=== PATIENT | female | born 1950 | race Caucasian/White ===

== ENCOUNTER → 2017-12-01 10:35 | Outpatient (CLI) | payer MEDICARE, SELFPAY ==
[2017-12-01 14:48] LABS: TSH w/ Reflex to FT4 2.75 uIU/mL (0.47-4.68)
[2017-12-01 14:50] LABS: BUN Creatinine Ratio 12.2 (6-22); Blood Urea Nitrogen 11 mg/dL (7-17); Calcium 9.5 mg/dL (8.4-10.2); Carbon Dioxide 30 mmol/L (22-32); Chloride 97 mmol/L (98-107); Cholesterol 310 mg/dL (140-199); Estimated Glomerular Filt Rate > 60.0 mL/min (>60); Glucose 90 mg/dL (80-110); HDL Cholesterol 106 mg/dL (40-60); HEMOLYSIS < 15 (0-50); LDL Cholesterol Calculated 183 mg/dL (<100); Potassium 4.3 mmol/L (3.4-5.1); Sodium 136 mmol/L (137-145); Triglycerides 103 mg/dL (35-150)
== END ==
PROVIDERS: Family Provider Internal Medicine; PCP Internal Medicine; Visit Provider Internal Medicine
DX: E03.9 Hypothyroidism, unspecified (principal); E78.00 Pure hypercholesterolemia, unspecified
CPT/HCPCS: 36415; 80048; 80061; 84443

== ENCOUNTER 2018-03-31 08:16 | Day surgery (SDC) | payer MEDICARE, SELFPAY ==
[2018-03-31 08:30] VITALS: BP 132/76; PULSE 49; RESP 10; TEMP 36.8; O2SAT 100; BMI 18.6
--- NOTE | 2018-03-31 08:46 | P.HP_ITS ---
History of Present Illness Date Patient Seen: 03/31/18 Time Patient Seen: 08:44 Chief complaint: 18476 SCREENING COLONOSCOPY Narrative: Destinee 67-year-old lady here for screening colonoscopy. She had an attempted colonoscopy in June that was done with IV sedation but she had a paradoxical reaction to fentanyl and Versed and became very rigid. Eventually, the procedure was aborted for safety concerns. She returns today to have this procedure done under general anesthesia. She reports that she has tolerated the prep fairly well. It has now been almost 11 years since her last full colonoscopy. She denies any nausea this morning reports that she feels well. Patient History Family & Social History Family History: Reviewed 03/31/18 by Shima Brown MD Meds Home Medications Medication Instructions Recorded Confirmed Type lorazepam [Ativan] 0.5 mg PO HSP PRN #2 tab 03/09/17 Rx multivitamin [Multiple Vitamins] 1 tab PO QDAY #0 03/09/17 History temazepam PO HSP PRN #0 03/09/17 History terbinafine HCl 250 mg PO QDAY #0 03/09/17 History Review of Systems Review of Systems All systems reviewed & are unremarkable except as noted in HPI and below Exam Vital Signs (past 8 hours): Very pleasant healthy-appearing lady in no distress HEENT: Normocephalic and atraumatic, pupils equal round reactive to light accommodation with anicteric sclera Lungs: Clear to auscultation bilaterally Heart: Regular rate and rhythm without murmur rub or gallop Abdomen: Soft, nontender, active bowel sounds Extremities: Warm well perfused without edema. Assessment & Plan Plan: Assessment/Plan Narrative: Very pleasant 67-year-old lady here for screening colonoscopy. As stated above , this was attempted with IV sedation but due to a paradoxical reaction, the procedure was aborted. We discussed the risks and benefits today with the patient and she has expressed a desire to complete the procedure with general anesthesia today.
[2018-03-31] MEDS: SODIUM CHLORIDE 0.9% 1,000 ML 200 ML IV (08:48)
[2018-03-31 09:33] VITALS: BP 97/60; PULSE 49; RESP 18; TEMP 36.6; O2SAT 98
--- NOTE | 2018-03-31 09:37 | PM.OP.1 ---
Operative Date/Time/Diagnoses Date of procedure: 03/31/18 Time of procedure: 09:37 Post-op diagnosis: same Procedure & Clinicians Procedure: Colonoscopy to the cecum Same procedure as scheduled: Yes Indications: Last colonoscopy 11 years ago Surgeon: Shima Brown Anesthesia Type: General (Dr. Sweeney) Operative Notes Findings: 1. Excellent prep 2. No polyps or mass lesions 3. Minimal diverticulosis limited sigmoid region 4. Long, tortuous, and atonic: 5. Grade 1-2 internal hemorrhoids. Closure Type: not applicable Estimated Blood Loss (mL): 0 Procedure in detail: After obtaining informed consent, the patient was brought to the GI suite and placed in the left lateral decubitus position on the examination table. After placement of appropriate monitors, the patient was given incremental doses of Versed and Fentanyl until an appropriate level of sedation was achieved. A time out was held per SCOAP protocol. A digital rectal examination was performed and did not reveal any masses or obstructing lesions. The colonoscope was gently passed into the patient's anus and the entire colon navigated to the level of the cecum with moderate difficulty due to colon atony and tortuosity. External pressure was required to negotiate to the hepatic flexure. Once in the cecum, the scope was withdrawn being sure to go before and beyond all mucosal folds and prominences and get an excellent examination. The findings are noted above. At the level of the rectal vault, the scope was retroflexed and the internal anal canal was examined. The scope was straightened and air aspirated from the colon. The instrument was removed from the patient's body and the procedure was concluded. The patient was allowed to awaken from sedation without difficulty and taken to the post-anesthesia care unit in good condition. Complications: none Condition: stable Disposition: PACU Plan for aftercare: 1. Discharge to home 2. Plan for next colonoscopy in 10 years or as clinically indicated. The patient is next colonoscopy should be scheduled with general anesthesia as well.
[2018-03-31 09:38] VITALS: BP 105/67; PULSE 48; RESP 16; O2SAT 99
[2018-03-31 09:43] VITALS: BP 110/70; PULSE 52; RESP 15; O2SAT 100
[2018-03-31 09:50] VITALS: BP 118/75; PULSE 52; RESP 17; TEMP 36.8; O2SAT 97
[2018-03-31 10:24] VITALS: BP 143/75; PULSE 56; RESP 16; TEMP 36.7; O2SAT 99
--- NOTE | 2018-03-31 11:16 | SUR.PHASEII ---
late entry: foreign came for pt, kendirck went over d/c instructions, pt left when ready and left in stable condition.
== END 2018-03-31 10:40 | disposition home or self-care (01) ==
PROVIDERS: Family Provider Internal Medicine; PCP Internal Medicine; Visit Provider Surgery
PROC: 0DJD8ZZ Inspection of Lower Intestinal Tract, Via Natural or Artificial Opening Endoscopic (ICD-10-PCS; CPT 45378; principal; 2018-03-31 09:15)
DX: Z12.11 Encounter for screening for malignant neoplasm of colon (principal); K57.30 Diverticulosis of large intestine without perforation or abscess without bleeding; K64.1 Second degree hemorrhoids
CPT/HCPCS: G0121; J2704

== ENCOUNTER 2018-06-08 14:30 | Outpatient (RCR) | payer MEDICARE, SELFPAY ==
--- NOTE | 2018-04-14 15:30 | PT.OIE ---
Current Diagnoses Strain of muscle, fascia and tendon of pelvis, initial encounter (04/14/18) Provider Visit Care Team Role Provider Type Cassy Rosas MD Primary Care Provider Physician Specialty: Internal Medicine Address: [address] [place] [address], [id number] Email: Zeeshan Swan PA-C Attending Provider Advanced Trainmaster Specialty: Medical Address: [address] [place] [address], [place], [address] Email: Physical Therapy Initial Evaluation PT-OP-A Visit Information Start: 04/14/18 08:48 Freq: Status: Active Protocol: Document 04/14/18 14:30 AMB (Rec: 04/15/18 08:08 AMB [email or web address]) Out-Patient Physical Therapy Visit Information Visit Information Visit Type Initial Evaluation Visit Start Time 14:30 Visit Stop Time 15:30 Total Visit Minutes 60 Visit Number 1 Evaluation Information Evaluation Date 04/14/18 PT-OP-B Current Condition Start: 04/14/18 08:48 Freq: Status: Active Protocol: Document 04/14/18 14:30 AMB (Rec: 04/15/18 08:08 AMB [email or web address]) Current Condition History of Current Condition Onset Date mid March Current Complaints R groin pain radiates into SI and down quad History of Current Condition The patient reports she was working out at the gym and didn't notice how much weight was on the hip abduction machine (when questioned she isn't quite sure it was this machine and admits it may have been the hip adduction machine). She tried to push against it and since has had pain in her right groin. She denies hearing a pop or any bruising. The pain was not horrible to begin with and slowly increased for a few days afterward. Now it it staying about the same. Worse with walking and rolling over in bed, best with staying still, lying down. Just prior to this injury she had noticed L piriformis pain after hiking downhill, but that has now resolved. Treatment Goals Patient/Caregiver Goals Get back to a full workout at the gym (elliptical, weights, rowing machine) and hiking. 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 She states she does not physically assist him (more than helping him towel off from the shower) . 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 Therapy/Recovery PT-OP-C Subjective Start: 04/14/18 08:48 Freq: Status: Active Protocol: Document 04/14/18 14:30 AMB (Rec: 04/15/18 08:08 AMB [email or web address]) Patient Questionnaires Lower Extremity Functional Scale LEFS Score 28 LEFS Impairment 60 to 79% Impaired (Score 17- 31) OP-PT Pain Assessment Pain Assessment Grid Paper Pain Assessment Grid Completed Yes Location Right Groin Pain Location Details groin, SI, thigh Intensity 5 Scale Used Numeric (1 - 10) PT-OP-G Mobility & Gait Start: 04/14/18 08:48 Freq: Status: Active Protocol: Document 04/14/18 14:30 AMB (Rec: 04/15/18 12:43 AMB [email or web address]) OP Gait Assessment Comments Gait Comments Antalgic gait. Decreased trunk rotation, increased lateral trunk lean. PT-OP-J Posture/Palpation/Skin Start: 04/14/18 08:48 Freq: Status: Active Protocol: Document 04/14/18 14:30 AMB (Rec: 04/15/18 11:09 AMB [email or web address]) Posture Evaluation Comments Posture Comments Pt stands with increased thoracic kyphosis and lumbar lordosis. Stands with genu recurvatum, hanging on Y ligaments. In supine R ASIS and malleoli are low. Palpation Assessment Location One Palpation Location R pelvis Palpation Details Pt denies pain with deep palpation to pubic bone, adductors, inguinal ligament, SI joint, gluteals and psoas. She does note some tenderness to the above structures but it is not increased on the R in comparsion to the L. PT-OP-K Range of Motion Start: 04/14/18 08:48 Freq: Status: Active Protocol: Document 04/14/18 14:30 AMB (Rec: 04/15/18 11:12 AMB [email or web address]) Hip Goniometric Range of Motion Hip ROM Limitations Comments Pt is generally hyper mobile throughout her hips and knees, no discomfort with stretching hamstring, piriformis, adductors, or quads through full range of motion. PT-OP-M Strength Start: 04/14/18 08:48 Freq: Status: Active Protocol: Document 04/14/18 14:30 AMB (Rec: 04/15/18 12:43 AMB [email or web address]) Hip Strength Hip Manual Muscle Testing Right Flexion (L2) 4 Good Extension (S1) 4 Good Abduction 4- Good- Adduction 4- Good- External Rotation 4 Good Internal Rotation 4 Good Left Flexion (L2) 5 Normal Extension (S1) 5 Normal Abduction 5 Normal Adduction 5 Normal External Rotation 4+ Good+ Internal Rotation 4 Good Knee Strength Knee Manual Muscle Testing Right Flexion (S2) 4+ Good+ Extension (L3) 5 Normal Left Flexion (S2) 5 Normal Extension (L3) 5 Normal PT-OP-Q Treatments Start: 04/14/18 08:48 Freq: Status: Active Protocol: Document 04/14/18 14:30 AMB (Rec: 04/15/18 11:16 AMB [email or web address]) Cardio Equipment Recumbent Bicycle Duration (Minutes) 5 Resistance 1 Seat Position 5 Therapeutic Exercises Supine Exercises 1 Supine Exercise Name lower trunk rotation Reps/Minutes 10 Comments hooklying Sitting Exercises 1 Sitting Exercise Name hip abd Resistance #3 tband Reps/Minutes 2x10 PT-OP-R Modalities Start: 04/14/18 08:48 Freq: Status: Active Protocol: Document 04/14/18 14:30 AMB (Rec: 04/15/18 11:16 AMB [email or web address]) Electric Stimulation Electric Stimulation Interferential Current (IFC) Body Location R groin Duration (Minutes) 10 Patient Position Hooklying PT-OP-T Assessment and Plan Start: 04/14/18 08:48 Freq: Status: Active Protocol: Document 04/14/18 14:30 AMB (Rec: 04/15/18 08:12 AMB [email or web address]) Physical Therapy Assessment Rehab Potential Rehabilitation Potential Good Evaluation Complexity Number of Personal Factors/Comorbidities 1-2 Number of Body Systems Impaired 4 or More Clinical Presentation at Evaluation Evolving Impairments Impairments Functional Activities Gait Pain Posture Strength Goals Three Impairment gait Short Term Goal (STG) The patient will ambulate over smooth surfaces for 5 minutes without an increase in leg pain. STG Duration 4 weeks Two Impairment Return to exercise Short Term Goal (STG) The patient will work out at the gym for 40 minutes with 2/ 10 pain or less. STG Duration 4 weeks Assisted Goal (LTG) The patient will go on a 1 mile hike with leg pain of 2/ 10 or less. LTG Duration 8 weeks One Impairment mobility Short Term Goal (STG) The patient will roll over in bed without groin pain. STG Duration 4 weeks Prison Psychiatrist Goal (LTG) The patient will move from sit to stand without groin pain. LTG Duration 8 weeks Assessment Summary Assessment The patient attends physical therapy with R groin strain with postural changes and SI dysfunction. Interestingly, she notes the most pain with resisted hip abduction and she was not especially tender to palpation. She has previously been fairly active, but has significant antalgic gait patterning due to the pain. She will benefit from PT to improve her gait, transfers, strength, and return to previous level of function. Physical Therapy Plan Frequency and Duration Frequency of Treatment 2x/Week Duration of Treatment 8 weeks Plan of Care Start Date 04/14/18 Plan of Care End Date 06/09/17 Therapeutic Interventions Therapeutic Interventions Aquatic Therapy Balance Training Gait Training Home Exercise Program Joint Mobilizations Manual Therapy Neuromuscular Re-education Self-Care/Home Management Soft Tissue Mobilization Therapeutic Activities Therapeutic Exercises Modalities Cold Pack/Ice Massage Electric Stimulation Hot Packs Ultrasound Next Visit Focus/Plan Next Note Type Treatment Note Next Visit Plan Progress core/hip stability. Encourage safe return to gym exercise (stationary bike vs rowing machine). Gait training to avoid compensation/antalgic gait.
--- NOTE | 2018-04-15 14:22 | PT.OPPOC ---
Current Diagnoses Strain of muscle, fascia and tendon of pelvis, initial encounter (04/14/18) Provider Visit Care Team Role Provider Type Cassy Rosas MD Primary Care Provider Physician Specialty: Internal Medicine Address: [address] [place] [address], [id number] Email: Zeeshan Swan PA-C Attending Provider Advanced Engraving Plate Maker Specialty: Medical Address: [address] [place] [address], [place], [address] Email: Plan Of Care PT-OP-T Assessment and Plan Start: 04/14/18 08:48 Freq: Status: Active Protocol: Document 04/14/18 14:30 AMB (Rec: 04/15/18 08:12 AMB [email or web address]) Physical Therapy Assessment Rehab Potential Rehabilitation Potential Good Evaluation Complexity Number of Personal Factors/Comorbidities 1-2 Number of Body Systems Impaired 4 or More Clinical Presentation at Evaluation Evolving Impairments Impairments Functional Activities Gait Pain Posture Strength Goals Three Impairment gait Short Term Goal (STG) The patient will ambulate over smooth surfaces for 5 minutes without an increase in leg pain. STG Duration 4 weeks Two Impairment Return to exercise Short Term Goal (STG) The patient will work out at the gym for 40 minutes with 2/ 10 pain or less. STG Duration 4 weeks Supervisor Finishing Room Goal (LTG) The patient will go on a 1 mile hike with leg pain of 2/ 10 or less. LTG Duration 8 weeks One Impairment mobility Short Term Goal (STG) The patient will roll over in bed without groin pain. STG Duration 4 weeks [facility] Goal (LTG) The patient will move from sit to stand without groin pain. LTG Duration 8 weeks Assessment Summary Assessment The patient attends physical therapy with R groin strain with postural changes and SI dysfunction. Interestingly, she notes the most pain with resisted hip abduction and she was not especially tender to palpation. She has previously been fairly active, but has significant antalgic gait patterning due to the pain. She will benefit from PT to improve her gait, transfers, strength, and return to previous level of function. Physical Therapy Plan Frequency and Duration Frequency of Treatment 2x/Week Duration of Treatment 8 weeks Plan of Care Start Date 04/14/18 Plan of Care End Date 06/09/17 Therapeutic Interventions Therapeutic Interventions Aquatic Therapy Balance Training Gait Training Home Exercise Program Joint Mobilizations Manual Therapy Neuromuscular Re-education Self-Care/Home Management Soft Tissue Mobilization Therapeutic Activities Therapeutic Exercises Modalities Cold Pack/Ice Massage Electric Stimulation Hot Packs Ultrasound Next Visit Focus/Plan Next Note Type Treatment Note Next Visit Plan Progress core/hip stability. Encourage safe return to gym exercise (stationary bike vs rowing machine). Gait training to avoid compensation/antalgic gait. Plan of Care Dates Plan of Care Start Date 04/14/18 Plan of Care End Date 06/09/17 Please Sign and Return: I have reviewed this Plan of Care and certify that the skilled therapy services above are required to meet the patient?s needs. Physician Signature Date Printed Name and Credentials Clinical Instructor Signature Printed Name and Credentials
--- NOTE | 2018-04-16 16:09 | PT.OTN ---
Current Diagnoses Strain of muscle, fascia and tendon of pelvis, initial encounter (04/16/18) Physical Therapy Treatment Note PT-OP-A Visit Information Start: 04/14/18 08:48 Freq: Status: Active Protocol: Document 04/16/18 14:30 DCW (Rec: 04/16/18 16:09 DCW [id number]) Out-Patient Physical Therapy Visit Information Visit Information Visit Type Treatment Note Visit Start Time 14:30 Visit Stop Time 15:25 Total Visit Minutes 55 Visit Number 2 Number of HAIR SPRING CUTTER Visits 0 Evaluation Information Evaluation Date 04/14/18 PT-OP-B Current Condition Start: 04/14/18 08:48 Freq: Status: Active Protocol: Document 04/14/18 14:30 AMB (Rec: 04/15/18 08:08 AMB [email or web address]) Current Condition History of Current Condition Onset Date mid March Current Complaints R groin pain radiates into SI and down quad History of Current Condition The patient reports she was working out at the gym and didn't notice how much weight was on the hip abduction machine (when questioned she isn't quite sure it was this machine and admits it may have been the hip adduction machine). She tried to push against it and since has had pain in her right groin. She denies hearing a pop or any bruising. The pain was not horrible to begin with and slowly increased for a few days afterward. Now it it staying about the same. Worse with walking and rolling over in bed, best with staying still, lying down. Just prior to this injury she had noticed L piriformis pain after hiking downhill, but that has now resolved. Treatment Goals Patient/Caregiver Goals Get back to a full workout at the gym (elliptical, weights, rowing machine) and hiking. 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 She states she does not physically assist him (more than helping him towel off from the shower) . 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 PT-OP-G Mobility & Gait Start: 04/14/18 08:48 Freq: Status: Active Protocol: Document 04/14/18 14:30 AMB (Rec: 04/15/18 12:43 AMB [email or web address]) OP Gait Assessment Comments Gait Comments Antalgic gait. Decreased trunk rotation, increased lateral trunk lean. PT-OP-J Posture/Palpation/Skin Start: 04/14/18 08:48 Freq: Status: Active Protocol: Document 04/14/18 14:30 AMB (Rec: 04/15/18 11:09 AMB [email or web address]) Posture Evaluation Comments Posture Comments Pt stands with increased thoracic kyphosis and lumbar lordosis. Stands with genu recurvatum, hanging on Y ligaments. In supine R ASIS and malleoli are low. Palpation Assessment Location One Palpation Location R pelvis Palpation Details Pt denies pain with deep palpation to pubic bone, adductors, inguinal ligament, SI joint, gluteals and psoas. She does note some tenderness to the above structures but it is not increased on the R in comparsion to the L. PT-OP-K Range of Motion Start: 04/14/18 08:48 Freq: Status: Active Protocol: Document 04/14/18 14:30 AMB (Rec: 04/15/18 11:12 AMB [email or web address]) Hip Goniometric Range of Motion Hip ROM Limitations Comments Pt is generally hyper mobile throughout her hips and knees, no discomfort with stretching hamstring, piriformis, adductors, or quads through full range of motion. PT-OP-M Strength Start: 04/14/18 08:48 Freq: Status: Active Protocol: Document 04/14/18 14:30 AMB (Rec: 04/15/18 12:43 AMB [email or web address]) Hip Strength Hip Manual Muscle Testing Right Flexion (L2) 4 Good Extension (S1) 4 Good Abduction 4- Good- Adduction 4- Good- External Rotation 4 Good Internal Rotation 4 Good Left Flexion (L2) 5 Normal Extension (S1) 5 Normal Abduction 5 Normal Adduction 5 Normal External Rotation 4+ Good+ Internal Rotation 4 Good Knee Strength Knee Manual Muscle Testing Right Flexion (S2) 4+ Good+ Extension (L3) 5 Normal Left Flexion (S2) 5 Normal Extension (L3) 5 Normal PT-OP-Q Treatments Start: 04/14/18 08:48 Freq: Status: Active Protocol: Document 04/16/18 14:30 DCW (Rec: 04/16/18 16:09 DCW [id number]) Therapeutic Exercises Supine Exercises Adductor Stretch Supine Exercise Name Adductor butterfly stretch Piriformis Stretch Supine Exercise Name Rkbr-ti-Vekllasj shoulder Side right 1 Supine Exercise Name lower trunk rotation Reps/Minutes 10 Comments hooklying Sidelying Exercises Reverse Clamshell Sidelying Exercise Name Reverse Clamshell Side right Clamshell Sidelying Exercise Name Clamshell Side right Hip Abduction Sidelying Exercise Name Abduction Side right Manual Therapy Treatment Soft Tissue Mobilization Piriformis Body Location Right Piriformis Mobilization Type Sustained Pressure Trigger Point Release Adductors Body Location Right Adductors Mobilization Type Strumming Sustained Pressure Manual Traction Long [place] Traction Details Long axis LE traction Body Position Supine Hip Capsule Stretch Details Lateral hip traction with belt Body Position Hooklying PT-OP-R Modalities Start: 04/14/18 08:48 Freq: Status: Active Protocol: Document 04/16/18 14:30 DCW (Rec: 04/16/18 16:09 DCW [id number]) Electric Stimulation Electric Stimulation Interferential Current (IFC) Body Location R groin Duration (Minutes) 15 Patient Position Hooklying Combined With Heat/Cold Hot Pack PT-OP-T Assessment and Plan Start: 04/14/18 08:48 Freq: Status: Active Protocol: Document 04/16/18 14:30 DCW (Rec: 04/16/18 16:09 DCW [id number]) Physical Therapy Assessment Impairments Impairments Functional Activities Gait Pain Posture Strength Goals Three Impairment gait Short Term Goal (STG) The patient will ambulate over smooth surfaces for 5 minutes without an increase in leg pain. STG Duration 4 weeks Two Impairment Return to exercise Short Term Goal (STG) The patient will work out at the gym for 40 minutes with 2/ 10 pain or less. STG Duration 4 weeks [facility] Goal (LTG) The patient will go on a 1 mile hike with leg pain of 2/ 10 or less. LTG Duration 8 weeks One Impairment mobility Short Term Goal (STG) The patient will roll over in bed without groin pain. STG Duration 4 weeks Beauty Operator Goal (LTG) The patient will move from sit to stand without groin pain. LTG Duration 8 weeks Assessment Summary Assessment Pt tolerated Manual and new TherEx very well, appears to be improving from initial soft tissue injury. Pt reported relief with LE traction and piriformis stretching, however continues to report pain in her groin. Physical Therapy Plan Frequency and Duration Frequency of Treatment 2x/Week Duration of Treatment 8 weeks Plan of Care Start Date 04/14/18 Plan of Care End Date 06/09/17 Therapeutic Interventions Therapeutic Interventions Aquatic Therapy Balance Training Gait Training Home Exercise Program Joint Mobilizations Manual Therapy Neuromuscular Re-education Self-Care/Home Management Soft Tissue Mobilization Therapeutic Activities Therapeutic Exercises Modalities Cold Pack/Ice Massage Electric Stimulation Hot Packs Ultrasound Next Visit Focus/Plan Next Note Type Treatment Note Next Visit Plan Progress core/hip stability. Encourage safe return to gym exercise (stationary bike vs rowing machine). Gait training to avoid compensation/antalgic gait.
--- NOTE | 2018-04-19 15:45 | PT.OTN ---
Current Diagnoses Strain of muscle, fascia and tendon of pelvis, initial encounter (04/19/18) Physical Therapy Treatment Note PT-OP-A Visit Information Start: 04/14/18 08:48 Freq: Status: Active Protocol: Document 04/19/18 14:30 AMB (Rec: 04/19/18 15:44 AMB [email or web address]) Out-Patient Physical Therapy Visit Information Visit Information Visit Type Treatment Note Visit Start Time 14:30 Visit Stop Time 15:25 Total Visit Minutes 55 Visit Number 3 Number of LEARNING AND DEVELOPMENT CONSULTANT Visits 0 Evaluation Information Evaluation Date 04/14/18 PT-OP-B Current Condition Start: 04/14/18 08:48 Freq: Status: Active Protocol: Document 04/14/18 14:30 AMB (Rec: 04/15/18 08:08 AMB [email or web address]) Current Condition History of Current Condition Onset Date mid March Current Complaints R groin pain radiates into SI and down quad History of Current Condition The patient reports she was working out at the gym and didn't notice how much weight was on the hip abduction machine (when questioned she isn't quite sure it was this machine and admits it may have been the hip adduction machine). She tried to push against it and since has had pain in her right groin. She denies hearing a pop or any bruising. The pain was not horrible to begin with and slowly increased for a few days afterward. Now it it staying about the same. Worse with walking and rolling over in bed, best with staying still, lying down. Just prior to this injury she had noticed L piriformis pain after hiking downhill, but that has now resolved. Treatment Goals Patient/Caregiver Goals Get back to a full workout at the gym (elliptical, weights, rowing machine) and hiking. 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 She states she does not physically assist him (more than helping him towel off from the shower) . 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 PT-OP-G Mobility & Gait Start: 04/14/18 08:48 Freq: Status: Active Protocol: Document 04/14/18 14:30 AMB (Rec: 04/15/18 12:43 AMB [email or web address]) OP Gait Assessment Comments Gait Comments Antalgic gait. Decreased trunk rotation, increased lateral trunk lean. PT-OP-J Posture/Palpation/Skin Start: 04/14/18 08:48 Freq: Status: Active Protocol: Document 04/14/18 14:30 AMB (Rec: 04/15/18 11:09 AMB [email or web address]) Posture Evaluation Comments Posture Comments Pt stands with increased thoracic kyphosis and lumbar lordosis. Stands with genu recurvatum, hanging on Y ligaments. In supine R ASIS and malleoli are low. Palpation Assessment Location One Palpation Location R pelvis Palpation Details Pt denies pain with deep palpation to pubic bone, adductors, inguinal ligament, SI joint, gluteals and psoas. She does note some tenderness to the above structures but it is not increased on the R in comparsion to the L. PT-OP-K Range of Motion Start: 04/14/18 08:48 Freq: Status: Active Protocol: Document 04/14/18 14:30 AMB (Rec: 04/15/18 11:12 AMB [email or web address]) Hip Goniometric Range of Motion Hip ROM Limitations Comments Pt is generally hyper mobile throughout her hips and knees, no discomfort with stretching hamstring, piriformis, adductors, or quads through full range of motion. PT-OP-M Strength Start: 04/14/18 08:48 Freq: Status: Active Protocol: Document 04/14/18 14:30 AMB (Rec: 04/15/18 12:43 AMB [email or web address]) Hip Strength Hip Manual Muscle Testing Right Flexion (L2) 4 Good Extension (S1) 4 Good Abduction 4- Good- Adduction 4- Good- External Rotation 4 Good Internal Rotation 4 Good Left Flexion (L2) 5 Normal Extension (S1) 5 Normal Abduction 5 Normal Adduction 5 Normal External Rotation 4+ Good+ Internal Rotation 4 Good Knee Strength Knee Manual Muscle Testing Right Flexion (S2) 4+ Good+ Extension (L3) 5 Normal Left Flexion (S2) 5 Normal Extension (L3) 5 Normal PT-OP-Q Treatments Start: 04/14/18 08:48 Freq: Status: Active Protocol: Document 04/19/18 14:30 AMB (Rec: 04/19/18 15:44 AMB [email or web address]) Therapeutic Exercises Supine Exercises 3 Supine Exercise Name 90-90 hip isometric Reps/Minutes 4 2 Supine Exercise Name bridges Reps/Minutes 10 Adductor Stretch Supine Exercise Name Adductor butterfly stretch Piriformis Stretch Supine Exercise Name Cubo-mb-Bogyegzz shoulder Side right 1 Supine Exercise Name lower trunk rotation Reps/Minutes 10 Comments hooklying Sidelying Exercises Reverse Clamshell Sidelying Exercise Name Reverse Clamshell Side right Clamshell Sidelying Exercise Name Clamshell Side right Hip Abduction Sidelying Exercise Name Abduction Side right Manual Therapy Treatment Soft Tissue Mobilization Piriformis Body Location Right Piriformis Mobilization Type Sustained Pressure Trigger Point Release Adductors Body Location Right Adductors Mobilization Type Strumming Sustained Pressure Manual Traction Long [place] Traction Details Long axis LE traction Body Position Supine PT-OP-R Modalities Start: 04/14/18 08:48 Freq: Status: Active Protocol: Document 04/19/18 14:30 AMB (Rec: 04/19/18 15:44 AMB [email or web address]) Electric Stimulation Electric Stimulation Interferential Current (IFC) Body Location R groin Duration (Minutes) 15 Patient Position Hooklying Combined With Heat/Cold Hot Pack PT-OP-T Assessment and Plan Start: 04/14/18 08:48 Freq: Status: Active Protocol: Document 04/19/18 14:30 AMB (Rec: 04/19/18 15:44 AMB [email or web address]) Physical Therapy Assessment Assessment Summary Assessment Continued dysfunction with gait (weakness at hip adductors and abductors continuing, hip flexion is improving) Physical Therapy Plan Next Visit Focus/Plan Next Note Type Treatment Note Next Visit Plan Progress core/hip stability. Gait training to avoid compensation/antalgic gait.
--- NOTE | 2018-04-21 16:08 | PT.OTN ---
Current Diagnoses Strain of muscle, fascia and tendon of pelvis, initial encounter (04/21/18) Physical Therapy Treatment Note PT-OP-A Visit Information Start: 04/14/18 08:48 Freq: Status: Active Protocol: Document 04/21/18 14:30 AMB (Rec: 04/21/18 16:07 AMB [email or web address]) Out-Patient Physical Therapy Visit Information Visit Information Visit Type Treatment Note Visit Start Time 14:30 Visit Stop Time 15:25 Total Visit Minutes 55 Visit Number 4 Number of PRODUCTION EXPERT Visits 0 Evaluation Information Evaluation Date 04/14/18 PT-OP-B Current Condition Start: 04/14/18 08:48 Freq: Status: Active Protocol: Document 04/14/18 14:30 AMB (Rec: 04/15/18 08:08 AMB [email or web address]) Current Condition History of Current Condition Onset Date mid March Current Complaints R groin pain radiates into SI and down quad History of Current Condition The patient reports she was working out at the gym and didn't notice how much weight was on the hip abduction machine (when questioned she isn't quite sure it was this machine and admits it may have been the hip adduction machine). She tried to push against it and since has had pain in her right groin. She denies hearing a pop or any bruising. The pain was not horrible to begin with and slowly increased for a few days afterward. Now it it staying about the same. Worse with walking and rolling over in bed, best with staying still, lying down. Just prior to this injury she had noticed L piriformis pain after hiking downhill, but that has now resolved. Treatment Goals Patient/Caregiver Goals Get back to a full workout at the gym (elliptical, weights, rowing machine) and hiking. 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 She states she does not physically assist him (more than helping him towel off from the shower) . 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 She still feels pain going down her anterior thigh PT-OP-G Mobility & Gait Start: 04/14/18 08:48 Freq: Status: Active Protocol: Document 04/14/18 14:30 AMB (Rec: 04/15/18 12:43 AMB [email or web address]) OP Gait Assessment Comments Gait Comments Antalgic gait. Decreased trunk rotation, increased lateral trunk lean. PT-OP-J Posture/Palpation/Skin Start: 04/14/18 08:48 Freq: Status: Active Protocol: Document 04/14/18 14:30 AMB (Rec: 04/15/18 11:09 AMB [email or web address]) Posture Evaluation Comments Posture Comments Pt stands with increased thoracic kyphosis and lumbar lordosis. Stands with genu recurvatum, hanging on Y ligaments. In supine R ASIS and malleoli are low. Palpation Assessment Location One Palpation Location R pelvis Palpation Details Pt denies pain with deep palpation to pubic bone, adductors, inguinal ligament, SI joint, gluteals and psoas. She does note some tenderness to the above structures but it is not increased on the R in comparsion to the L. PT-OP-K Range of Motion Start: 04/14/18 08:48 Freq: Status: Active Protocol: Document 04/14/18 14:30 AMB (Rec: 04/15/18 11:12 AMB [email or web address]) Hip Goniometric Range of Motion Hip ROM Limitations Comments Pt is generally hyper mobile throughout her hips and knees, no discomfort with stretching hamstring, piriformis, adductors, or quads through full range of motion. PT-OP-M Strength Start: 04/14/18 08:48 Freq: Status: Active Protocol: Document 04/14/18 14:30 AMB (Rec: 04/15/18 12:43 AMB [email or web address]) Hip Strength Hip Manual Muscle Testing Right Flexion (L2) 4 Good Extension (S1) 4 Good Abduction 4- Good- Adduction 4- Good- External Rotation 4 Good Internal Rotation 4 Good Left Flexion (L2) 5 Normal Extension (S1) 5 Normal Abduction 5 Normal Adduction 5 Normal External Rotation 4+ Good+ Internal Rotation 4 Good Knee Strength Knee Manual Muscle Testing Right Flexion (S2) 4+ Good+ Extension (L3) 5 Normal Left Flexion (S2) 5 Normal Extension (L3) 5 Normal PT-OP-Q Treatments Start: 04/14/18 08:48 Freq: Status: Active Protocol: Document 04/21/18 14:30 AMB (Rec: 04/21/18 16:07 AMB [email or web address]) Therapeutic Exercises Supine Exercises 4 Supine Exercise Name SLR Reps/Minutes 2x10 Adductor Stretch Supine Exercise Name Adductor butterfly stretch Sidelying Exercises Clamshell Sidelying Exercise Name Clamshell Side right Standing Exercises 2 Standing Exercise Name hip flexor stretch Reps/Minutes 2x10 1 Standing Exercise Name hip abduction Side bilateral Reps/Minutes 10 Manual Therapy Treatment Soft Tissue Mobilization Piriformis Body Location Right Piriformis Mobilization Type Sustained Pressure Trigger Point Release Adductors Body Location Right Adductors Mobilization Type Strumming Sustained Pressure PT-OP-R Modalities Start: 04/14/18 08:48 Freq: Status: Active Protocol: Document 04/21/18 14:30 AMB (Rec: 04/21/18 16:08 AMB [email or web address]) Electric Stimulation Electric Stimulation Interferential Current (IFC) Body Location R groin Duration (Minutes) 15 Patient Position Hooklying Combined With Heat/Cold Hot Pack PT-OP-T Assessment and Plan Start: 04/14/18 08:48 Freq: Status: Active Protocol: Document 04/21/18 14:30 AMB (Rec: 04/21/18 16:07 AMB [email or web address]) Physical Therapy Assessment Assessment Summary Assessment Pt with difficulty weightbearing through the right leg. Physical Therapy Plan Frequency and Duration Frequency of Treatment 2x/Week Duration of Treatment 8 weeks Plan of Care Start Date 04/14/18 Plan of Care End Date 06/09/17 Next Visit Focus/Plan Next Note Type Treatment Note Next Visit Plan Progress core/hip stability. Gait training to avoid compensation/antalgic gait.
--- NOTE | 2018-04-26 15:45 | PT.OTN ---
Current Diagnoses Strain of muscle, fascia and tendon of pelvis, initial encounter (04/26/18) Physical Therapy Treatment Note PT-OP-A Visit Information Start: 04/14/18 08:48 Freq: Status: Active Protocol: Document 04/26/18 14:30 AMB (Rec: 04/26/18 15:45 AMB [email or web address]) Out-Patient Physical Therapy Visit Information Visit Information Visit Type Treatment Note Visit Start Time 14:30 Visit Stop Time 15:25 Total Visit Minutes 55 Visit Number 5 Number of MEDIA CONSULTANT Visits 0 Evaluation Information Evaluation Date 04/14/18 PT-OP-B Current Condition Start: 04/14/18 08:48 Freq: Status: Active Protocol: Document 04/14/18 14:30 AMB (Rec: 04/15/18 08:08 AMB [email or web address]) Current Condition History of Current Condition Onset Date mid March Current Complaints R groin pain radiates into SI and down quad History of Current Condition The patient reports she was working out at the gym and didn't notice how much weight was on the hip abduction machine (when questioned she isn't quite sure it was this machine and admits it may have been the hip adduction machine). She tried to push against it and since has had pain in her right groin. She denies hearing a pop or any bruising. The pain was not horrible to begin with and slowly increased for a few days afterward. Now it it staying about the same. Worse with walking and rolling over in bed, best with staying still, lying down. Just prior to this injury she had noticed L piriformis pain after hiking downhill, but that has now resolved. Treatment Goals Patient/Caregiver Goals Get back to a full workout at the gym (elliptical, weights, rowing machine) and hiking. 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 She states she does not physically assist him (more than helping him towel off from the shower) . 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 Feels adductor with weight shifting. PT-OP-G Mobility & Gait Start: 04/14/18 08:48 Freq: Status: Active Protocol: Document 04/14/18 14:30 AMB (Rec: 04/15/18 12:43 AMB [email or web address]) OP Gait Assessment Comments Gait Comments Antalgic gait. Decreased trunk rotation, increased lateral trunk lean. PT-OP-J Posture/Palpation/Skin Start: 04/14/18 08:48 Freq: Status: Active Protocol: Document 04/14/18 14:30 AMB (Rec: 04/15/18 11:09 AMB [email or web address]) Posture Evaluation Comments Posture Comments Pt stands with increased thoracic kyphosis and lumbar lordosis. Stands with genu recurvatum, hanging on Y ligaments. In supine R ASIS and malleoli are low. Palpation Assessment Location One Palpation Location R pelvis Palpation Details Pt denies pain with deep palpation to pubic bone, adductors, inguinal ligament, SI joint, gluteals and psoas. She does note some tenderness to the above structures but it is not increased on the R in comparsion to the L. PT-OP-K Range of Motion Start: 04/14/18 08:48 Freq: Status: Active Protocol: Document 04/14/18 14:30 AMB (Rec: 04/15/18 11:12 AMB [email or web address]) Hip Goniometric Range of Motion Hip ROM Limitations Comments Pt is generally hyper mobile throughout her hips and knees, no discomfort with stretching hamstring, piriformis, adductors, or quads through full range of motion. PT-OP-M Strength Start: 04/14/18 08:48 Freq: Status: Active Protocol: Document 04/14/18 14:30 AMB (Rec: 04/15/18 12:43 AMB [email or web address]) Hip Strength Hip Manual Muscle Testing Right Flexion (L2) 4 Good Extension (S1) 4 Good Abduction 4- Good- Adduction 4- Good- External Rotation 4 Good Internal Rotation 4 Good Left Flexion (L2) 5 Normal Extension (S1) 5 Normal Abduction 5 Normal Adduction 5 Normal External Rotation 4+ Good+ Internal Rotation 4 Good Knee Strength Knee Manual Muscle Testing Right Flexion (S2) 4+ Good+ Extension (L3) 5 Normal Left Flexion (S2) 5 Normal Extension (L3) 5 Normal PT-OP-Q Treatments Start: 04/14/18 08:48 Freq: Status: Active Protocol: Document 04/26/18 14:30 AMB (Rec: 04/26/18 15:45 AMB [email or web address]) Therapeutic Exercises Supine Exercises 6 Supine Exercise Name IT band stretch Reps/Minutes 30x2 5 Supine Exercise Name quad stretch Reps/Minutes 30x2 4 Supine Exercise Name SLR Reps/Minutes 2x10 Adductor Stretch Supine Exercise Name Adductor butterfly stretch Sidelying Exercises Clamshell Sidelying Exercise Name Clamshell Side right Reps/Minutes 2x10 Manual Therapy Treatment Soft Tissue Mobilization 1 Body Location Quads/ hip flexor/ IT band Mobilization Type Myofascial Release Sustained Pressure Body Position Hooklying Adductors Body Location Right Adductors Mobilization Type Strumming Sustained Pressure Manual Traction Long [place] Traction Details Long axis LE traction Body Position Supine PT-OP-R Modalities Start: 04/14/18 08:48 Freq: Status: Active Protocol: Document 04/26/18 14:30 AMB (Rec: 04/26/18 15:45 AMB [email or web address]) Electric Stimulation Electric Stimulation Interferential Current (IFC) Body Location R groin Duration (Minutes) 15 Patient Position Hooklying Combined With Heat/Cold Hot Pack PT-OP-T Assessment and Plan Start: 04/14/18 08:48 Freq: Status: Active Protocol: Document 04/26/18 14:30 AMB (Rec: 04/26/18 15:45 AMB [email or web address]) Physical Therapy Assessment Assessment Summary Assessment Pt is improving, although lateral and anterior thigh pain continues. Physical Therapy Plan Frequency and Duration Frequency of Treatment 2x/Week Duration of Treatment 8 weeks Plan of Care Start Date 04/14/18 Plan of Care End Date 06/09/17 Next Visit Focus/Plan Next Note Type Treatment Note Next Visit Plan Progress core/hip stability. Gait training to avoid compensation/antalgic gait.
--- NOTE | 2018-04-29 16:32 | PT.OTN ---
Current Diagnoses Strain of muscle, fascia and tendon of pelvis, initial encounter (04/29/18) Physical Therapy Treatment Note PT-OP-A Visit Information Start: 04/14/18 08:48 Freq: Status: Active Protocol: Document 04/29/18 13:45 AMB (Rec: 04/29/18 16:32 AMB [email or web address]) Out-Patient Physical Therapy Visit Information Visit Information Visit Type Treatment Note Visit Start Time 13:45 Visit Stop Time 14:40 Total Visit Minutes 55 Visit Number 6 Number of RETAIL MANAGEMENT TRAINEE Visits 0 Evaluation Information Evaluation Date 04/14/18 PT-OP-B Current Condition Start: 04/14/18 08:48 Freq: Status: Active Protocol: Document 04/14/18 14:30 AMB (Rec: 04/15/18 08:08 AMB [email or web address]) Current Condition History of Current Condition Onset Date mid March Current Complaints R groin pain radiates into SI and down quad History of Current Condition The patient reports she was working out at the gym and didn't notice how much weight was on the hip abduction machine (when questioned she isn't quite sure it was this machine and admits it may have been the hip adduction machine). She tried to push against it and since has had pain in her right groin. She denies hearing a pop or any bruising. The pain was not horrible to begin with and slowly increased for a few days afterward. Now it it staying about the same. Worse with walking and rolling over in bed, best with staying still, lying down. Just prior to this injury she had noticed L piriformis pain after hiking downhill, but that has now resolved. Treatment Goals Patient/Caregiver Goals Get back to a full workout at the gym (elliptical, weights, rowing machine) and hiking. 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 She states she does not physically assist him (more than helping him towel off from the shower) . 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 Lingering pain is definitely groin. PT-OP-G Mobility & Gait Start: 04/14/18 08:48 Freq: Status: Active Protocol: Document 04/14/18 14:30 AMB (Rec: 04/15/18 12:43 AMB [email or web address]) OP Gait Assessment Comments Gait Comments Antalgic gait. Decreased trunk rotation, increased lateral trunk lean. PT-OP-J Posture/Palpation/Skin Start: 04/14/18 08:48 Freq: Status: Active Protocol: Document 04/14/18 14:30 AMB (Rec: 04/15/18 11:09 AMB [email or web address]) Posture Evaluation Comments Posture Comments Pt stands with increased thoracic kyphosis and lumbar lordosis. Stands with genu recurvatum, hanging on Y ligaments. In supine R ASIS and malleoli are low. Palpation Assessment Location One Palpation Location R pelvis Palpation Details Pt denies pain with deep palpation to pubic bone, adductors, inguinal ligament, SI joint, gluteals and psoas. She does note some tenderness to the above structures but it is not increased on the R in comparsion to the L. PT-OP-K Range of Motion Start: 04/14/18 08:48 Freq: Status: Active Protocol: Document 04/14/18 14:30 AMB (Rec: 04/15/18 11:12 AMB [email or web address]) Hip Goniometric Range of Motion Hip ROM Limitations Comments Pt is generally hyper mobile throughout her hips and knees, no discomfort with stretching hamstring, piriformis, adductors, or quads through full range of motion. PT-OP-M Strength Start: 04/14/18 08:48 Freq: Status: Active Protocol: Document 04/14/18 14:30 AMB (Rec: 04/15/18 12:43 AMB [email or web address]) Hip Strength Hip Manual Muscle Testing Right Flexion (L2) 4 Good Extension (S1) 4 Good Abduction 4- Good- Adduction 4- Good- External Rotation 4 Good Internal Rotation 4 Good Left Flexion (L2) 5 Normal Extension (S1) 5 Normal Abduction 5 Normal Adduction 5 Normal External Rotation 4+ Good+ Internal Rotation 4 Good Knee Strength Knee Manual Muscle Testing Right Flexion (S2) 4+ Good+ Extension (L3) 5 Normal Left Flexion (S2) 5 Normal Extension (L3) 5 Normal PT-OP-Q Treatments Start: 04/14/18 08:48 Freq: Status: Active Protocol: Document 04/29/18 13:45 AMB (Rec: 04/29/18 16:32 AMB [email or web address]) Therapeutic Exercises Supine Exercises Adductor Stretch Supine Exercise Name Adductor butterfly stretch Piriformis Stretch Supine Exercise Name Eqzp-vq-Waqlzpji shoulder Side right Sidelying Exercises Clamshell Sidelying Exercise Name Clamshell Side right Reps/Minutes 2x10 Hip Abduction Sidelying Exercise Name Abduction Side right Reps/Minutes 2x10 Manual Therapy Treatment Soft Tissue Mobilization Piriformis Body Location Right Piriformis Mobilization Type Sustained Pressure Trigger Point Release Adductors Body Location Right Adductors Mobilization Type Strumming Sustained Pressure Manual Traction Long [place] Traction Details Long axis LE traction Body Position Supine PT-OP-R Modalities Start: 04/14/18 08:48 Freq: Status: Active Protocol: Document 04/29/18 13:45 AMB (Rec: 04/29/18 16:32 AMB [email or web address]) Electric Stimulation Electric Stimulation Interferential Current (IFC) Body Location R groin Duration (Minutes) 15 Patient Position Hooklying Combined With Heat/Cold Hot Pack PT-OP-T Assessment and Plan Start: 04/14/18 08:48 Freq: Status: Active Protocol: Document 04/29/18 13:45 AMB (Rec: 04/29/18 16:32 AMB [email or web address]) Physical Therapy Assessment Goals Three Impairment gait Short Term Goal (STG) The patient will ambulate over smooth surfaces for 5 minutes without an increase in leg pain. STG Duration 4 weeks Two Impairment Return to exercise Short Term Goal (STG) The patient will work out at the gym for 40 minutes with 2/ 10 pain or less. STG Duration 4 weeks Fur Puller Goal (LTG) The patient will go on a 1 mile hike with leg pain of 2/ 10 or less. LTG Duration 8 weeks One Impairment mobility Short Term Goal (STG) The patient will roll over in bed without groin pain. STG Duration 4 weeks Mcc Goal (LTG) The patient will move from sit to stand without groin pain. LTG Duration 8 weeks Assessment Summary Assessment Pt's gait is improving , continues to have tightness trigger point in adductors but overall less soft tissue area is affected. Physical Therapy Plan Next Visit Focus/Plan Next Note Type Treatment Note Next Visit Plan Progress core/hip stability. Gait training to avoid compensation/antalgic gait.
--- NOTE | 2018-05-03 15:31 | PT.OTN ---
Current Diagnoses Strain of muscle, fascia and tendon of pelvis, initial encounter (05/03/18) Physical Therapy Treatment Note PT-OP-A Visit Information Start: 04/14/18 08:48 Freq: Status: Active Protocol: Document 05/03/18 14:30 AMB (Rec: 05/03/18 15:31 AMB [email or web address]) Out-Patient Physical Therapy Visit Information Visit Information Visit Type Treatment Note Visit Start Time 13:45 Visit Stop Time 14:40 Total Visit Minutes 55 Visit Number 7 Number of COUNTING MACHINE OPERATOR Visits 0 PT-OP-B Current Condition Start: 04/14/18 08:48 Freq: Status: Active Protocol: Document 04/14/18 14:30 AMB (Rec: 04/15/18 08:08 AMB [email or web address]) Current Condition History of Current Condition Onset Date mid March Current Complaints R groin pain radiates into SI and down quad History of Current Condition The patient reports she was working out at the gym and didn't notice how much weight was on the hip abduction machine (when questioned she isn't quite sure it was this machine and admits it may have been the hip adduction machine). She tried to push against it and since has had pain in her right groin. She denies hearing a pop or any bruising. The pain was not horrible to begin with and slowly increased for a few days afterward. Now it it staying about the same. Worse with walking and rolling over in bed, best with staying still, lying down. Just prior to this injury she had noticed L piriformis pain after hiking downhill, but that has now resolved. Treatment Goals Patient/Caregiver Goals Get back to a full workout at the gym (elliptical, weights, rowing machine) and hiking. 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 She states she does not physically assist him (more than helping him towel off from the shower) . 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 Can still feel it in the groin. PT-OP-G Mobility & Gait Start: 04/14/18 08:48 Freq: Status: Active Protocol: Document 04/14/18 14:30 AMB (Rec: 04/15/18 12:43 AMB [email or web address]) OP Gait Assessment Comments Gait Comments Antalgic gait. Decreased trunk rotation, increased lateral trunk lean. PT-OP-J Posture/Palpation/Skin Start: 04/14/18 08:48 Freq: Status: Active Protocol: Document 04/14/18 14:30 AMB (Rec: 04/15/18 11:09 AMB [email or web address]) Posture Evaluation Comments Posture Comments Pt stands with increased thoracic kyphosis and lumbar lordosis. Stands with genu recurvatum, hanging on Y ligaments. In supine R ASIS and malleoli are low. Palpation Assessment Location One Palpation Location R pelvis Palpation Details Pt denies pain with deep palpation to pubic bone, adductors, inguinal ligament, SI joint, gluteals and psoas. She does note some tenderness to the above structures but it is not increased on the R in comparsion to the L. PT-OP-K Range of Motion Start: 04/14/18 08:48 Freq: Status: Active Protocol: Document 04/14/18 14:30 AMB (Rec: 04/15/18 11:12 AMB [email or web address]) Hip Goniometric Range of Motion Hip ROM Limitations Comments Pt is generally hyper mobile throughout her hips and knees, no discomfort with stretching hamstring, piriformis, adductors, or quads through full range of motion. PT-OP-M Strength Start: 04/14/18 08:48 Freq: Status: Active Protocol: Document 04/14/18 14:30 AMB (Rec: 04/15/18 12:43 AMB [email or web address]) Hip Strength Hip Manual Muscle Testing Right Flexion (L2) 4 Good Extension (S1) 4 Good Abduction 4- Good- Adduction 4- Good- External Rotation 4 Good Internal Rotation 4 Good Left Flexion (L2) 5 Normal Extension (S1) 5 Normal Abduction 5 Normal Adduction 5 Normal External Rotation 4+ Good+ Internal Rotation 4 Good Knee Strength Knee Manual Muscle Testing Right Flexion (S2) 4+ Good+ Extension (L3) 5 Normal Left Flexion (S2) 5 Normal Extension (L3) 5 Normal PT-OP-Q Treatments Start: 04/14/18 08:48 Freq: Status: Active Protocol: Document 05/03/18 14:30 AMB (Rec: 05/03/18 15:31 AMB [email or web address]) Therapeutic Exercises Sidelying Exercises Hip Abduction Sidelying Exercise Name Abduction Side right Reps/Minutes 2x10 Standing Exercises 2 Standing Exercise Name weightshift Reps/Minutes 1x10 1 Standing Exercise Name standing adductor stretch Reps/Minutes 30x2 Manual Therapy Treatment Soft Tissue Mobilization Adductors Body Location Right Adductors Mobilization Type Strumming Sustained Pressure Manual Traction Long [place] Traction Details Long axis LE traction Body Position Supine PT-OP-R Modalities Start: 04/14/18 08:48 Freq: Status: Active Protocol: Document 05/03/18 14:30 AMB (Rec: 05/03/18 15:31 AMB [email or web address]) Electric Stimulation Electric Stimulation Interferential Current (IFC) Body Location R groin Duration (Minutes) 15 Patient Position Hooklying Combined With Heat/Cold Hot Pack PT-OP-T Assessment and Plan Start: 04/14/18 08:48 Freq: Status: Active Protocol: Document 05/03/18 14:30 AMB (Rec: 05/03/18 15:31 AMB [email or web address]) Physical Therapy Assessment Assessment Summary Assessment Pt gait nearing normal, but pelvis does shift in single leg stance Physical Therapy Plan Next Visit Focus/Plan Next Note Type Treatment Note Next Visit Plan Progress core/hip stability. Gait training to avoid compensation/antalgic gait.
--- NOTE | 2018-05-06 14:31 | PT.OTN ---
Current Diagnoses Strain of muscle, fascia and tendon of pelvis, initial encounter (05/06/18) Physical Therapy Treatment Note PT-OP-A Visit Information Start: 04/14/18 08:48 Freq: Status: Active Protocol: Document 05/06/18 13:30 AMB (Rec: 05/06/18 14:31 AMB [email or web address]) Out-Patient Physical Therapy Visit Information Visit Information Visit Type Treatment Note Visit Start Time 13:45 Visit Stop Time 14:40 Total Visit Minutes 55 Visit Number 8 Number of ANIMAL CRUELTY INVESTIGATION SUPERVISOR Visits 0 PT-OP-B Current Condition Start: 04/14/18 08:48 Freq: Status: Active Protocol: Document 04/14/18 14:30 AMB (Rec: 04/15/18 08:08 AMB [email or web address]) Current Condition History of Current Condition Onset Date mid March Current Complaints R groin pain radiates into SI and down quad History of Current Condition The patient reports she was working out at the gym and didn't notice how much weight was on the hip abduction machine (when questioned she isn't quite sure it was this machine and admits it may have been the hip adduction machine). She tried to push against it and since has had pain in her right groin. She denies hearing a pop or any bruising. The pain was not horrible to begin with and slowly increased for a few days afterward. Now it it staying about the same. Worse with walking and rolling over in bed, best with staying still, lying down. Just prior to this injury she had noticed L piriformis pain after hiking downhill, but that has now resolved. Treatment Goals Patient/Caregiver Goals Get back to a full workout at the gym (elliptical, weights, rowing machine) and hiking. 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 She states she does not physically assist him (more than helping him towel off from the shower) . 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 PT-OP-G Mobility & Gait Start: 04/14/18 08:48 Freq: Status: Active Protocol: Document 04/14/18 14:30 AMB (Rec: 04/15/18 12:43 AMB [email or web address]) OP Gait Assessment Comments Gait Comments Antalgic gait. Decreased trunk rotation, increased lateral trunk lean. PT-OP-J Posture/Palpation/Skin Start: 04/14/18 08:48 Freq: Status: Active Protocol: Document 04/14/18 14:30 AMB (Rec: 04/15/18 11:09 AMB [email or web address]) Posture Evaluation Comments Posture Comments Pt stands with increased thoracic kyphosis and lumbar lordosis. Stands with genu recurvatum, hanging on Y ligaments. In supine R ASIS and malleoli are low. Palpation Assessment Location One Palpation Location R pelvis Palpation Details Pt denies pain with deep palpation to pubic bone, adductors, inguinal ligament, SI joint, gluteals and psoas. She does note some tenderness to the above structures but it is not increased on the R in comparsion to the L. PT-OP-K Range of Motion Start: 04/14/18 08:48 Freq: Status: Active Protocol: Document 04/14/18 14:30 AMB (Rec: 04/15/18 11:12 AMB [email or web address]) Hip Goniometric Range of Motion Hip ROM Limitations Comments Pt is generally hyper mobile throughout her hips and knees, no discomfort with stretching hamstring, piriformis, adductors, or quads through full range of motion. PT-OP-M Strength Start: 04/14/18 08:48 Freq: Status: Active Protocol: Document 04/14/18 14:30 AMB (Rec: 04/15/18 12:43 AMB [email or web address]) Hip Strength Hip Manual Muscle Testing Right Flexion (L2) 4 Good Extension (S1) 4 Good Abduction 4- Good- Adduction 4- Good- External Rotation 4 Good Internal Rotation 4 Good Left Flexion (L2) 5 Normal Extension (S1) 5 Normal Abduction 5 Normal Adduction 5 Normal External Rotation 4+ Good+ Internal Rotation 4 Good Knee Strength Knee Manual Muscle Testing Right Flexion (S2) 4+ Good+ Extension (L3) 5 Normal Left Flexion (S2) 5 Normal Extension (L3) 5 Normal PT-OP-Q Treatments Start: 04/14/18 08:48 Freq: Status: Active Protocol: Document 05/06/18 13:30 AMB (Rec: 05/06/18 14:31 AMB [email or web address]) Therapeutic Exercises Supine Exercises 6 Supine Exercise Name IT band stretch Reps/Minutes 30x2 5 Supine Exercise Name quad stretch Reps/Minutes 30x2 Sidelying Exercises Hip Abduction Sidelying Exercise Name Abduction Side right Reps/Minutes 2x10 Standing Exercises 2 Standing Exercise Name weightshift Reps/Minutes 1x10 Manual Therapy Treatment Soft Tissue Mobilization Adductors Body Location Right Adductors Mobilization Type Strumming Sustained Pressure Manual Traction Long [place] Traction Details Long axis LE traction Body Position Supine PT-OP-R Modalities Start: 04/14/18 08:48 Freq: Status: Active Protocol: Document 05/06/18 13:30 AMB (Rec: 05/06/18 14:31 AMB [email or web address]) Electric Stimulation Electric Stimulation Interferential Current (IFC) Body Location R groin Duration (Minutes) 15 Patient Position Hooklying Combined With Heat/Cold Hot Pack PT-OP-T Assessment and Plan Start: 04/14/18 08:48 Freq: Status: Active Protocol: Document 05/06/18 13:30 AMB (Rec: 05/06/18 14:31 AMB [email or web address]) Physical Therapy Assessment Assessment Summary Assessment Possible d/c next visit as pt is doing well and should be able to manage independently if no flare ups Physical Therapy Plan Next Visit Focus/Plan Next Note Type Discharge Summary
--- NOTE | 2018-05-19 11:08 | PT.OTN ---
Current Diagnoses Strain of muscle, fascia and tendon of pelvis, initial encounter (05/13/18) Physical Therapy Treatment Note PT-OP-A Visit Information Start: 04/14/18 08:48 Freq: Status: Active Protocol: Document 05/13/18 13:45 AMB (Rec: 05/19/18 11:07 AMB [email or web address]) Out-Patient Physical Therapy Visit Information Visit Information Visit Type Treatment Note Visit Start Time 13:45 Visit Stop Time 14:40 Total Visit Minutes 55 Visit Number 9 Number of MANAGER TELEMARKETING Visits 0 PT-OP-B Current Condition Start: 04/14/18 08:48 Freq: Status: Active Protocol: Document 04/14/18 14:30 AMB (Rec: 04/15/18 08:08 AMB [email or web address]) Current Condition History of Current Condition Onset Date mid March Current Complaints R groin pain radiates into SI and down quad History of Current Condition The patient reports she was working out at the gym and didn't notice how much weight was on the hip abduction machine (when questioned she isn't quite sure it was this machine and admits it may have been the hip adduction machine). She tried to push against it and since has had pain in her right groin. She denies hearing a pop or any bruising. The pain was not horrible to begin with and slowly increased for a few days afterward. Now it it staying about the same. Worse with walking and rolling over in bed, best with staying still, lying down. Just prior to this injury she had noticed L piriformis pain after hiking downhill, but that has now resolved. Treatment Goals Patient/Caregiver Goals Get back to a full workout at the gym (elliptical, weights, rowing machine) and hiking. 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 She states she does not physically assist him (more than helping him towel off from the shower) . 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 PT-OP-G Mobility & Gait Start: 04/14/18 08:48 Freq: Status: Active Protocol: Document 04/14/18 14:30 AMB (Rec: 04/15/18 12:43 AMB [email or web address]) OP Gait Assessment Comments Gait Comments Antalgic gait. Decreased trunk rotation, increased lateral trunk lean. PT-OP-J Posture/Palpation/Skin Start: 04/14/18 08:48 Freq: Status: Active Protocol: Document 04/14/18 14:30 AMB (Rec: 04/15/18 11:09 AMB [email or web address]) Posture Evaluation Comments Posture Comments Pt stands with increased thoracic kyphosis and lumbar lordosis. Stands with genu recurvatum, hanging on Y ligaments. In supine R ASIS and malleoli are low. Palpation Assessment Location One Palpation Location R pelvis Palpation Details Pt denies pain with deep palpation to pubic bone, adductors, inguinal ligament, SI joint, gluteals and psoas. She does note some tenderness to the above structures but it is not increased on the R in comparsion to the L. PT-OP-K Range of Motion Start: 04/14/18 08:48 Freq: Status: Active Protocol: Document 04/14/18 14:30 AMB (Rec: 04/15/18 11:12 AMB [email or web address]) Hip Goniometric Range of Motion Hip ROM Limitations Comments Pt is generally hyper mobile throughout her hips and knees, no discomfort with stretching hamstring, piriformis, adductors, or quads through full range of motion. PT-OP-M Strength Start: 04/14/18 08:48 Freq: Status: Active Protocol: Document 04/14/18 14:30 AMB (Rec: 04/15/18 12:43 AMB [email or web address]) Hip Strength Hip Manual Muscle Testing Right Flexion (L2) 4 Good Extension (S1) 4 Good Abduction 4- Good- Adduction 4- Good- External Rotation 4 Good Internal Rotation 4 Good Left Flexion (L2) 5 Normal Extension (S1) 5 Normal Abduction 5 Normal Adduction 5 Normal External Rotation 4+ Good+ Internal Rotation 4 Good Knee Strength Knee Manual Muscle Testing Right Flexion (S2) 4+ Good+ Extension (L3) 5 Normal Left Flexion (S2) 5 Normal Extension (L3) 5 Normal PT-OP-Q Treatments Start: 04/14/18 08:48 Freq: Status: Active Protocol: Document 05/13/18 13:45 AMB (Rec: 05/19/18 11:07 AMB [email or web address]) Therapeutic Exercises Supine Exercises 6 Supine Exercise Name IT band stretch Reps/Minutes 30x2 5 Supine Exercise Name quad stretch Reps/Minutes 30x2 4 Supine Exercise Name SLR Reps/Minutes 2x10 Piriformis Stretch Supine Exercise Name Ftuz-zj-Xtfuuuga shoulder Side right 1 Supine Exercise Name lower trunk rotation Reps/Minutes 10 Comments hooklying Sidelying Exercises Hip Abduction Sidelying Exercise Name Abduction Side right Reps/Minutes 2x10 Standing Exercises 3 Standing Exercise Name ballistic stretch warm up Comments leg swing, standing adductor stretch Manual Therapy Treatment Soft Tissue Mobilization 1 Body Location Quads/ hip flexor/ IT band Mobilization Type Myofascial Release Sustained Pressure Body Position Hooklying Adductors Body Location Right Adductors Mobilization Type Strumming Sustained Pressure Manual Traction Long [place] Traction Details Long axis LE traction Body Position Supine PT-OP-R Modalities Start: 04/14/18 08:48 Freq: Status: Active Protocol: Document 05/13/18 13:45 AMB (Rec: 05/19/18 11:07 AMB [email or web address]) Electric Stimulation Electric Stimulation Interferential Current (IFC) Body Location R groin Duration (Minutes) 15 Patient Position Hooklying Combined With Heat/Cold Hot Pack PT-OP-T Assessment and Plan Start: 04/14/18 08:48 Freq: Status: Active Protocol: Document 05/13/18 13:45 AMB (Rec: 05/19/18 11:07 AMB [email or web address]) Physical Therapy Assessment Goals Three Impairment gait Short Term Goal (STG) The patient will ambulate over smooth surfaces for 5 minutes without an increase in leg pain. STG Duration MET Two Impairment Return to exercise Short Term Goal (STG) The patient will work out at the gym for 40 minutes with 2/ 10 pain or less. STG Duration 4 weeks Environmental Officer Goal (LTG) The patient will go on a 1 mile hike with leg pain of 2/ 10 or less. LTG Duration 8 weeks One Impairment mobility Short Term Goal (STG) The patient will roll over in bed without groin pain. STG Duration MET Environmental Officer Goal (LTG) The patient will move from sit to stand without groin pain. LTG Duration MET Assessment Summary Assessment See pt for one more visit in 3 weeks to make sure she is progressing as we would expect . Physical Therapy Plan Next Visit Focus/Plan Next Note Type Discharge Summary Next Visit Plan Pt is close to discharge will see for one more visit in a few weeks to make sure that she is doing well.
--- NOTE | 2018-06-08 16:08 | PT.OPPOC ---
Current Diagnoses Strain of muscle, fascia and tendon of pelvis, initial encounter (06/08/18) Provider Visit Care Team Role Provider Type Cassy Rosas MD Primary Care Provider Physician Specialty: Internal Medicine Address: [address] [place] [address], [id number] Email: Zeeshan Swan PA-C Attending Provider Advanced Door Manager Specialty: Medical Address: [address] [place] [address], [place], [address] Email: Plan Of Care PT-OP-T Assessment and Plan Start: 04/14/18 08:48 Freq: Status: Active Protocol: Document 06/08/18 14:30 AMB (Rec: 06/08/18 16:06 AMB [email or web address]) Physical Therapy Assessment Goals Two Impairment Return to exercise Short Term Goal (STG) The patient will work out at the gym for 40 minutes with 2/ 10 pain or less. STG Duration MET Usp Goal (LTG) The patient will go on a 1 mile hike with leg pain of 2/ 10 or less. 06/08/18 PROGRESS MADE- groin pain better but SI pain limits walking LTG Duration 8 weeks One Impairment mobility Short Term Goal (STG) The patient will roll over in bed without groin pain. STG Duration MET Usp Goal (LTG) The patient will move from sit to stand without groin pain. LTG Duration MET Assessment Summary Assessment Pt's groin is doing well, but bilateral SI pain remains with walking. She has been able to return to the gym without pain. Would recommend SI belt , pt would prefer to look at options online first before dealing with her deductible. Pt would like to be seen 1-2 more times to finalize program for SI pain. Physical Therapy Plan Frequency and Duration Frequency of Treatment 1x/month Duration of Treatment 8 weeks Plan of Care Start Date 06/08/18 Plan of Care End Date 08/03/18 Therapeutic Interventions Therapeutic Interventions Aquatic Therapy Balance Training Gait Training Home Exercise Program Joint Mobilizations Manual Therapy Neuromuscular Re-education Self-Care/Home Management Soft Tissue Mobilization Therapeutic Activities Therapeutic Exercises Modalities Cold Pack/Ice Massage Electric Stimulation Hot Packs Ultrasound Next Visit Focus/Plan Next Note Type Treatment Note Next Visit Plan Pt is close to discharge will see for one/two more visits in a few weeks to make sure that she is doing well. Plan of Care Dates Plan of Care Start Date 06/08/18 Plan of Care End Date 08/03/18 Please Sign and Return: I have reviewed this Plan of Care and certify that the skilled therapy services above are required to meet the patient?s needs. Physician Signature Date Printed Name and Credentials Clinical Instructor Signature Printed Name and Credentials
--- NOTE | 2018-06-08 16:09 | PT.OTN ---
Current Diagnoses Strain of muscle, fascia and tendon of pelvis, initial encounter (06/08/18) Physical Therapy Treatment Note PT-OP-A Visit Information Start: 04/14/18 08:48 Freq: Status: Active Protocol: Document 06/08/18 14:30 AMB (Rec: 06/08/18 16:06 AMB [email or web address]) Out-Patient Physical Therapy Visit Information Visit Information Visit Type Progress Note Visit Start Time 14:30 Visit Stop Time 15:15 Total Visit Minutes 45 Visit Number 10 Number of APPLICATION SYSTEMS ADMINISTRATOR Visits 0 PT-OP-B Current Condition Start: 04/14/18 08:48 Freq: Status: Active Protocol: Document 04/14/18 14:30 AMB (Rec: 04/15/18 08:08 AMB [email or web address]) Current Condition History of Current Condition Onset Date mid March Current Complaints R groin pain radiates into SI and down quad History of Current Condition The patient reports she was working out at the gym and didn't notice how much weight was on the hip abduction machine (when questioned she isn't quite sure it was this machine and admits it may have been the hip adduction machine). She tried to push against it and since has had pain in her right groin. She denies hearing a pop or any bruising. The pain was not horrible to begin with and slowly increased for a few days afterward. Now it it staying about the same. Worse with walking and rolling over in bed, best with staying still, lying down. Just prior to this injury she had noticed L piriformis pain after hiking downhill, but that has now resolved. Treatment Goals Patient/Caregiver Goals Get back to a full workout at the gym (elliptical, weights, rowing machine) and hiking. 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 She states she does not physically assist him (more than helping him towel off from the shower) . 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 Her groin is getting better and she has returned to the gym. Walking is her major issue. Especially down hill. PT-OP-G Mobility & Gait Start: 04/14/18 08:48 Freq: Status: Active Protocol: Document 04/14/18 14:30 AMB (Rec: 04/15/18 12:43 AMB [email or web address]) OP Gait Assessment Comments Gait Comments Antalgic gait. Decreased trunk rotation, increased lateral trunk lean. PT-OP-J Posture/Palpation/Skin Start: 04/14/18 08:48 Freq: Status: Active Protocol: Document 04/14/18 14:30 AMB (Rec: 04/15/18 11:09 AMB [email or web address]) Posture Evaluation Comments Posture Comments Pt stands with increased thoracic kyphosis and lumbar lordosis. Stands with genu recurvatum, hanging on Y ligaments. In supine R ASIS and malleoli are low. Palpation Assessment Location One Palpation Location R pelvis Palpation Details Pt denies pain with deep palpation to pubic bone, adductors, inguinal ligament, SI joint, gluteals and psoas. She does note some tenderness to the above structures but it is not increased on the R in comparsion to the L. PT-OP-K Range of Motion Start: 04/14/18 08:48 Freq: Status: Active Protocol: Document 04/14/18 14:30 AMB (Rec: 04/15/18 11:12 AMB [email or web address]) Hip Goniometric Range of Motion Hip ROM Limitations Comments Pt is generally hyper mobile throughout her hips and knees, no discomfort with stretching hamstring, piriformis, adductors, or quads through full range of motion. PT-OP-M Strength Start: 04/14/18 08:48 Freq: Status: Active Protocol: Document 04/14/18 14:30 AMB (Rec: 04/15/18 12:43 AMB [email or web address]) Hip Strength Hip Manual Muscle Testing Right Flexion (L2) 4 Good Extension (S1) 4 Good Abduction 4- Good- Adduction 4- Good- External Rotation 4 Good Internal Rotation 4 Good Left Flexion (L2) 5 Normal Extension (S1) 5 Normal Abduction 5 Normal Adduction 5 Normal External Rotation 4+ Good+ Internal Rotation 4 Good Knee Strength Knee Manual Muscle Testing Right Flexion (S2) 4+ Good+ Extension (L3) 5 Normal Left Flexion (S2) 5 Normal Extension (L3) 5 Normal PT-OP-Q Treatments Start: 04/14/18 08:48 Freq: Status: Active Protocol: Document 06/08/18 14:30 AMB (Rec: 06/08/18 16:06 AMB [email or web address]) Therapeutic Exercises Supine Exercises Piriformis Stretch Supine Exercise Name Ltqn-ao-Byuxruya shoulder Side right 1 Supine Exercise Name lower trunk rotation Reps/Minutes 10 Comments hooklying Sidelying Exercises 1 Sidelying Exercise Name adduction Reps/Minutes 2x10 Hip Abduction Sidelying Exercise Name Abduction Side right Reps/Minutes 2x10 Standing Exercises 2 Standing Exercise Name weightshift Reps/Minutes 1x10 Manual Therapy Treatment Manual Traction Long [place] Traction Details Long axis LE traction Body Position Supine Manual Techniques 1 Type sacrum Comments PA Other Other Manual Treatments SI belt trial PT-OP-R Modalities Start: 04/14/18 08:48 Freq: Status: Active Protocol: Document 05/13/18 13:45 AMB (Rec: 05/19/18 11:07 AMB [email or web address]) Electric Stimulation Electric Stimulation Interferential Current (IFC) Body Location R groin Duration (Minutes) 15 Patient Position Hooklying Combined With Heat/Cold Hot Pack PT-OP-T Assessment and Plan Start: 04/14/18 08:48 Freq: Status: Active Protocol: Document 06/08/18 14:30 AMB (Rec: 06/08/18 16:06 AMB [email or web address]) Physical Therapy Assessment Goals Two Impairment Return to exercise Short Term Goal (STG) The patient will work out at the gym for 40 minutes with 2/ 10 pain or less. STG Duration MET Road Maker Goal (LTG) The patient will go on a 1 mile hike with leg pain of 2/ 10 or less. 06/08/18 PROGRESS MADE- groin pain better but SI pain limits walking LTG Duration 8 weeks One Impairment mobility Short Term Goal (STG) The patient will roll over in bed without groin pain. STG Duration MET Skilled Nursing Goal (LTG) The patient will move from sit to stand without groin pain. LTG Duration MET Assessment Summary Assessment Pt's groin is doing well, but bilateral SI pain remains with walking. She has been able to return to the gym without pain. Would recommend SI belt , pt would prefer to look at options online first before dealing with her deductible. Pt would like to be seen 1-2 more times to finalize program for SI pain. Physical Therapy Plan Frequency and Duration Frequency of Treatment 1x/month Duration of Treatment 8 weeks Plan of Care Start Date 06/08/18 Plan of Care End Date 08/03/18 Therapeutic Interventions Therapeutic Interventions Aquatic Therapy Balance Training Gait Training Home Exercise Program Joint Mobilizations Manual Therapy Neuromuscular Re-education Self-Care/Home Management Soft Tissue Mobilization Therapeutic Activities Therapeutic Exercises Modalities Cold Pack/Ice Massage Electric Stimulation Hot Packs Ultrasound Next Visit Focus/Plan Next Note Type Treatment Note Next Visit Plan Pt is close to discharge will see for one/two more visits in a few weeks to make sure that she is doing well.
--- NOTE | 2018-08-19 07:49 | PT.OPDS ---
Current Diagnoses Strain of muscle, fascia and tendon of pelvis, initial encounter (06/08/18) Provider Visit Care Team Role Provider Type Cassy Rosas MD Primary Care Provider Physician Specialty: Internal Medicine Address: [address] [place] [address], [id number] Email: Zeeshan Swan PA-C Attending Provider Advanced Habilitation Assistant Specialty: Medical Address: [facility], [place], [address] Email: Visit Number Visit Number 10 Discharge Summary PT-OP-B Current Condition Start: 04/14/18 08:48 Freq: Status: Active Protocol: Document 04/14/18 14:30 AMB (Rec: 04/15/18 08:08 AMB [email or web address]) Current Condition History of Current Condition Onset Date mid March Current Complaints R groin pain radiates into SI and down quad History of Current Condition The patient reports she was working out at the gym and didn't notice how much weight was on the hip abduction machine (when questioned she isn't quite sure it was this machine and admits it may have been the hip adduction machine). She tried to push against it and since has had pain in her right groin. She denies hearing a pop or any bruising. The pain was not horrible to begin with and slowly increased for a few days afterward. Now it it staying about the same. Worse with walking and rolling over in bed, best with staying still, lying down. Just prior to this injury she had noticed L piriformis pain after hiking downhill, but that has now resolved. Treatment Goals Patient/Caregiver Goals Get back to a full workout at the gym (elliptical, weights, rowing machine) and hiking. 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 She states she does not physically assist him (more than helping him towel off from the shower) . 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 Her groin is getting better and she has returned to the gym. Walking is her major issue. Especially down hill. PT-OP-G Mobility & Gait Start: 04/14/18 08:48 Freq: Status: Active Protocol: Document 04/14/18 14:30 AMB (Rec: 04/15/18 12:43 AMB [email or web address]) OP Gait Assessment Comments Gait Comments Antalgic gait. Decreased trunk rotation, increased lateral trunk lean. PT-OP-J Posture/Palpation/Skin Start: 04/14/18 08:48 Freq: Status: Active Protocol: Document 04/14/18 14:30 AMB (Rec: 04/15/18 11:09 AMB [email or web address]) Posture Evaluation Comments Posture Comments Pt stands with increased thoracic kyphosis and lumbar lordosis. Stands with genu recurvatum, hanging on Y ligaments. In supine R ASIS and malleoli are low. Palpation Assessment Location One Palpation Location R pelvis Palpation Details Pt denies pain with deep palpation to pubic bone, adductors, inguinal ligament, SI joint, gluteals and psoas. She does note some tenderness to the above structures but it is not increased on the R in comparsion to the L. PT-OP-K Range of Motion Start: 04/14/18 08:48 Freq: Status: Active Protocol: Document 04/14/18 14:30 AMB (Rec: 04/15/18 11:12 AMB [email or web address]) Hip Goniometric Range of Motion Hip ROM Limitations Comments Pt is generally hyper mobile throughout her hips and knees, no discomfort with stretching hamstring, piriformis, adductors, or quads through full range of motion. PT-OP-M Strength Start: 04/14/18 08:48 Freq: Status: Active Protocol: Document 04/14/18 14:30 AMB (Rec: 04/15/18 12:43 AMB [email or web address]) Hip Strength Hip Manual Muscle Testing Right Flexion (L2) 4 Good Extension (S1) 4 Good Abduction 4- Good- Adduction 4- Good- External Rotation 4 Good Internal Rotation 4 Good Left Flexion (L2) 5 Normal Extension (S1) 5 Normal Abduction 5 Normal Adduction 5 Normal External Rotation 4+ Good+ Internal Rotation 4 Good Knee Strength Knee Manual Muscle Testing Right Flexion (S2) 4+ Good+ Extension (L3) 5 Normal Left Flexion (S2) 5 Normal Extension (L3) 5 Normal PT-OP-T Assessment and Plan Start: 04/14/18 08:48 Freq: Status: Active Protocol: Document 08/19/18 07:43 AMB (Rec: 08/19/18 07:49 AMB [email or web address]) Physical Therapy Assessment Goals Two Impairment Return to exercise Short Term Goal (STG) The patient will work out at the gym for 40 minutes with 2/ 10 pain or less. STG Duration MET Detention Goal (LTG) The patient will go on a 1 mile hike with leg pain of 2/ 10 or less. 06/08/18 PROGRESS MADE- groin pain better but SI pain limits walking LTG Duration 8 weeks One Impairment mobility Short Term Goal (STG) The patient will roll over in bed without groin pain. STG Duration MET Manager Agriculture Goal (LTG) The patient will move from sit to stand without groin pain. LTG Duration MET Assessment Summary Assessment At Fernanda's last appointment in May, her groin pain was well healed. She had come to PT for 10 visits. She had developed some SI pain, so we scheduled 1 more appointment, but she then canceled that because she was doing well. At the time of her last visit, she was not back to 100% but was going on her walks and felt like she could continue her HEP independently for her groin pain. Physical Therapy Plan Discharge Physical Therapy Discharge Reasons Goals Met
== END 2018-08-19 16:30 ==
LOC: PHYS 14:30
PROVIDERS: PCP Internal Medicine; Visit Provider Physician Assistant
DX: S39.013A Strain of muscle, fascia and tendon of pelvis, initial encounter (principal)
CPT/HCPCS: 97014; 97032; 97110; 97140; 97162; G0283

== ENCOUNTER → 2018-09-21 11:02 | Outpatient (CLI) | payer MEDICARE, SELFPAY ==
--- NOTE | 2018-09-21 11:04 | DI.RAD.S_ITS ---
PROCEDURE: XR HIP W PEL IF DONE LT MIN 4V INDICATIONS: fall TECHNIQUE: AP pelvis with lateral view(s) of the bilateral hip(s). COMPARISON: None. FINDINGS: Bones: Chronic appearing right pubic bone fracture noted. No acute fractures or dislocations. Pelvic ring appears intact. No suspicious bony lesions. Mild bilateral hip osteoarthritis. Soft tissues: The visualized bowel gas pattern is normal. No suspicious soft tissue calcifications. IMPRESSION: 1. No evidence of right or left hip fracture. 2. Chronic appearing right pubic bone fracture with associated sclerosis but could be related to the fracture or underlying pathology including a neoplastic process. Please correlate with clinical history. Dictated by: Aislinn Maier MD, PhD on 09/21/2018 at 12:28 Approved by: Aislinn Maier MD, PhD on 09/21/2018 at 12:30
== END ==
PROVIDERS: PCP Internal Medicine; Visit Provider Physician Assistant
DX: M25.552 Pain in left hip (principal); S32.501A Unspecified fracture of right pubis, initial encounter for closed fracture; M16.0 Bilateral primary osteoarthritis of hip
CPT/HCPCS: 73522

== ENCOUNTER → 2018-12-08 11:10 | Outpatient (CLI) | payer MEDICARE, SELFPAY ==
[2018-12-08 12:16] LABS: Triglycerides 108 mg/dL (35-150)
[2018-12-08 12:26] LABS: Cholesterol 339 mg/dL (140-199); HDL Cholesterol 129 mg/dL (40-60); LDL Cholesterol Calculated 188 mg/dL (<100)
== END ==
PROVIDERS: PCP Internal Medicine; Visit Provider Internal Medicine
DX: E78.00 Pure hypercholesterolemia, unspecified (principal)
CPT/HCPCS: 36415; 80061

== ENCOUNTER → 2019-12-16 10:00 | Outpatient (CLI) | payer MEDICARE, SELFPAY ==
[2019-12-16 12:19] LABS: BUN Creatinine Ratio 11.1 (6-22); Blood Urea Nitrogen 10 mg/dL (7-17); Calcium 9.4 mg/dL (8.4-10.2); Carbon Dioxide 25 mmol/L (22-32); Chloride 100 mmol/L (98-107); Cholesterol 271 mg/dL (140-199); Estimated Glomerular Filt Rate > 60.0 mL/min (>60); Glucose 86 mg/dL (80-110); HDL Cholesterol 107 mg/dL (40-60); HEMOLYSIS < 15 (0-50); LDL Cholesterol Calculated 145 mg/dL (<100); Potassium 4.2 mmol/L (3.4-5.1); Sodium 133 mmol/L (137-145); Triglycerides 94 mg/dL (35-150)
== END ==
PROVIDERS: PCP Internal Medicine; Referring Provider Internal Medicine; Visit Provider Internal Medicine
DX: E03.9 Hypothyroidism, unspecified (principal)
CPT/HCPCS: 36415; 80048; 80061; 84443

== ENCOUNTER → 2019-12-23 15:52 | Outpatient (CLI) | payer MEDICARE, SELFPAY ==
--- NOTE | 2019-12-23 15:53 | DI.MG.S_ITS ---
BILATERAL DIGITAL SCREENING MAMMOGRAM 3D/2D WITH CAD: 12/23/2019 CLINICAL: Routine screening. Comparison is made to exams dated: 03/27/2017 mammogram, 09/13/2014 mammogram, and 09/01/2014 mammogram - [facility]. The tissue of both breasts is heterogeneously dense. This may lower the sensitivity of mammography. Current study was also evaluated with a Computer Aided Detection (CAD) system. No significant masses, calcifications, or other findings are seen in either breast. There has been no significant interval change. IMPRESSION: NEGATIVE There is no mammographic evidence of malignancy. A 1 year screening mammogram is recommended. This exam was interpreted at Station ID: [id number]. NOTE: For mammograms, a report in lay terms will be sent to the patient. Approximately 15% of breast malignancies will not be visualized mammographically. In the management of a palpable breast mass, a negative mammogram must not discourage biopsy of a clinically suspicious lesion. Electronically Signed By: Alban Bain M.D., jr/mena:12/23/2019 16:08:08 letter sent: Normal Exam ACR BI-RADS Category 1: Negative [id number]
== END ==
PROVIDERS: PCP Internal Medicine; Referring Provider Internal Medicine; Visit Provider Internal Medicine
DX: Z12.31 Encounter for screening mammogram for malignant neoplasm of breast (principal)
CPT/HCPCS: 77063; 77067